=== PATIENT | female | born 1985 | race Hispanic/Latino ===

== ENCOUNTER 2024-02-06 11:07 | Outpatient (CLI) | payer OTHER, SELFPAY ==
--- NOTE | ~2024-02-06 | US_ITS ---
Pelvic ultrasound. Clinical History: Excessive and frequent menstruation Technique: Realtime transabdominal and transvaginal scanning of the pelvis was performed. Color flow Doppler and Doppler spectral analysis were performed. Findings: The uterus is anteverted. The endometrial stripe has a thickness of 16 mm. No focal mass i s identified. The right ovary measures 3.4 x 2.1 x 2.9 cm. No significant right ovarian or adnexal mass is seen. The left ovary measures 3.4 x 2.5 x 3.6 cm. Simple left ovarian cyst measures 2.6 cm. There is no evidence of free fluid in the cul de sac. Impression: 2.6 cm simple left ovarian cyst, otherwise unremarkable exam. Reviewed, dictated and finalized at location . Impression: 2.6 cm simple left ovarian cyst, otherwise unremarkable exam.
== END 2024-02-06 11:08 ==
PROVIDERS: PCP Physician Assistant; Visit Provider Physician Assistant
DX: N92.0 Excessive and frequent menstruation with regular cycle (principal); N83.202 Unspecified ovarian cyst, left side
CPT/HCPCS: 76830; 76856

== ENCOUNTER 2024-06-14 22:16 | Emergency (ER) | payer OTHER, SELFPAY ==
--- NOTE | ~2024-06-14 | XR_ITS ---
EXAMINATION: XR chest 1V portable DATE: 06/14/2024 23:00 INDICATION: Chest pain. Hematemesis. TECHNIQUE: A single frontal view of the chest was obtained. COMPARISON: None. FINDINGS: There are airspace opacities in the lower lung zones. A calcified right lung nodule and pawan cified right hilar lymph nodes are consistent with old granulomatous disease. No pleural effusion or pneumothorax. The heart size is normal. The nasogastric tube tip is beyond the inferior margin of the radiograph, but at least to the stomach. IMPRESSION: 1. Airspace opacities in the lower lung zones, consistent with atelectasis or less likely pneumonia. Reviewed, dictated and finalized at location A. IMPRESSION: 1. Airspace opacities in the lower lung zones, consistent with atelectasis or l ess likely pneumonia.
--- NOTE | ~2024-06-14 | XR_ITS ---
EXAMINATION: XR abdomen gastric tube insert DATE: 06/14/2024 23:00 INDICATION: Nasogastric tube placement. TECHNIQUE: An upright view of the abdomen was obtained. COMPARISON: None. FINDINGS: There are no dilated loops of bowel. The lower abdomen is excluded. The nasogastric tube ti p is in the stomach. IMPRESSION: 1. Nasogastric tube tip in the stomach. Reviewed, dictated and finalized at location A.
[2024-06-14 22:18] VITALS: BP 148/89; PULSE 94; RESP 18; TEMP 36.7; O2SAT 98
--- NOTE | 2024-06-14 22:35 | ECG_ITS ---
Test Date: 2024-06-14 23:16:20 Measurements Intervals [place] Rate: 88 P: 20 MI: 154 QRS: -4 QRSD: 101 T: 3 QT: 360 QTc: 436 Interpretive Statements SINUS RHYTHM WITH SINUS ARRHYTHMIA MODERATE VOLTAGE CRITERIA FOR LVH, CONSIDER NORMAL VARIANT [MEETS CRITERIA IN ONE OF: R(aVL), S(V1), R(V5), R(V5/V6)+S(V1)] No previous ECG available for comparison Electronically Signed On 06-15-2024 13:37:56 CDT by Milyl Hernandez M.D.
[2024-06-14 22:51] LABS: BEDSIDEPREGUCG Negative (Negative)
--- NOTE | 2024-06-14 22:55 | ED.GENADULT ---
HPI - General Adult General Chief complaint: Nausea/Vomiting/Diarrhea Stated complaint: vomiting blood Time Seen by Provider: 06/14/24 22:27 History of Present Illness HPI narrative: Patient is a 38-year-old female who presents ER with multiple complaints. First complaint is vomiting blood 25 minutes prior to arrival. She had 1 dry heave followed by 1 episode of emesis that had clear mucus mixed with a approximately 2 spoonfuls of blood. She is not on blood thinners. No dark black stool or melena. No syncope. She reports she has had central chest discomfort for the last 2 days. No exertional component. She is on her menstrual cycle is taking TXA. No pain with deep breath. No hemoptysis. No fevers or chills or sweats. Related Data Allergies Allergy/AdvReac Type Severity Reaction Status Date / Time Penicillins Allergy Mild Hives / Verified 06/14/24 22:23 [place] Review of Systems Review of Systems: All systems reviewed & are unremarkable except as noted in HPI and below Constitutional: Constitutional: Reports no additional constitutional complaints ENT: Reports system reviewed and no additional complaints, except as documented Cardiovascular: Cardiovascular: Reports no additional cardiovascular complaints Respiratory: Respiratory: Reports no additional respiratory complaints Gastrointestinal: Gastrointestinal: Reports no additional gastrointestinal complaints Musculoskeletal: Musculoskeletal: Reports no additional musculoskeletal complaints [facility] Past Medical History Medical History (Updated 06/15/24 @ 00:13 by Crispin Lea MD) Healthy female adult Surgical History Surgical History (Updated 06/14/24 @ 22:57 by Crispin Lea MD) History of tubal ligation Exam Narrative: GENERAL: Well-appearing, morbidly obese, and in no acute distress. HEAD: Normocephalic, atraumatic. ENT: Mucous membranes moist. CHEST: Clear to auscultation. No respiratory distress. HEART: Regular rate and rhythm. Normal peripheral pulses. ABDOMEN: Soft, nontender, nondistended. EXTREMITIES: Normal range of motion. No edema. SKIN: Warm, dry, no rash. NEURO: Alert and oriented x3. PSYCH: Normal mood and affect. Course Course Emergency Course: NG tube inserted. Lavaged with 300 mL of saline. No blood. NG removed. D-dimer negative as is the troponin. Lab work otherwise unremarkable. Discharge home with antiemetics and reflux medication. Vital Signs Vital signs: Vital Signs Temperature 98.1 F 06/14/24 22:18 Pulse Rate 94 06/14/24 22:18 Respiratory Rate 18 06/14/24 22:18 Blood Pressure 148/89 H 06/14/24 22:18 Pulse Oximetry 98 06/14/24 22:18 Oxygen Delivery Room Air 06/14/24 22:18 Temperature 98.1 F 06/14/24 22:18 Pulse Rate 94 06/14/24 22:18 Respiratory Rate 18 06/14/24 22:18 Blood Pressure 148/89 H 06/14/24 22:18 Pulse Oximetry 98 06/14/24 22:18 Oxygen Delivery Room Air 06/14/24 22:18 Medical Decision Making Vital Signs Vital Signs: Vital Signs Temperature 98.1 F 06/14/24 22:18 Pulse Rate 94 06/14/24 22:18 Respiratory Rate 18 06/14/24 22:18 Blood Pressure 148/89 H 06/14/24 22:18 Pulse Oximetry 98 06/14/24 22:18 Oxygen Delivery Room Air 06/14/24 22:18 Temperature 98.1 F 06/14/24 22:18 Pulse Rate 94 06/14/24 22:18 Respiratory Rate 18 06/14/24 22:18 Blood Pressure 148/89 H 06/14/24 22:18 Pulse Oximetry 98 06/14/24 22:18 Oxygen Delivery Room Air 06/14/24 22:18 Lab Data 06/14/24 22:53 06/14/24 22:53 Labs: Lab Results 06/14/24 06/14/24 Range/Units 22:48 22:53 WBC 9.9 (4.5-10.0) K/mm3 RBC 4.09 L (4.2-5.4) M/mm3 Hgb 11.9 L (12.0-15.0) g/dL Hct 35.6 L (37.0-47.0) % MCV 87.0 (80-100) fl MCH 29.1 (26-34) pg MCHC 33.4 (32-36) g/dl RDW 13.7 (11.5-14.5) % Plt Count 271 (150-375) k/mm3 MPV 10.2 (7.4-10.4) fl Immature G
[2024-06-14 22:59] LABS: Basophils Percent Auto 0.3 % (0.2-1.2); Eosinophils Absolute Auto 0.2 K/mm3 (0-0.3); Eosinophils Percent Auto 1.9 % (0-4.4); Hematocrit 35.6 % (37.0-47.0); Hemoglobin 11.9 g/dL (12.0-15.0); Immature Granulocyte Absolute 0.05 K/mm3 (0.00-0.031); Immature Granulocyte Percent A 0.5 % (0-0.5); Lymphocytes Absolute Auto 3.04 K/mm3 (0.9-3.2); Lymphocytes Percent Auto 30.6 % (18.3-44.2); Mean Corpuscular HGB Conc 33.4 g/dl (32-36); Mean Corpuscular Hemoglobin 29.1 pg (26-34); Mean Platelet Volume 10.2 fl (7.4-10.4); Monocytes Absolute Auto 0.5 K/mm3 (0.1-0.6); Monocytes Percent Auto 4.8 % (2.6-8.5); Neutrophils Absolute Auto 6.1 K/mm3 (1.3-6.7); Neutrophils Percent Auto 61.9 % (45.5-73.1); Platelet Count Result 271 k/mm3 (150-375); Red Blood Count 4.09 M/mm3 (4.2-5.4); Red Cell Distribution Width 13.7 % (11.5-14.5); White Blood Count 9.9 K/mm3 (4.5-10.0)
[2024-06-14 23:05] LABS: Add Urine Microscopic? YES; Appearance Urine Clear (Clear); Bacteria Urine None Seen /hpf; Bilirubin Urine Negative (Negative); Blood Urine 2+ (Negative); Color Urine Yellow (Yellow); Glucose Urine UA Negative (Negative); Ketones Urine Negative (Negative); Leukocyte Esterase Ur Negative LEU/UL (Negative); Nitrate Urine Negative (Negative); Non Pathogenic Casts 0-2; Protein Urine Negative (Negative); Specific Grav Ur 1.023 (1.001-1.035); Squamous Epithelial Cell Urine None Seen /hpf (Few); WBC Urine 0-5 /hpf (0-3)
[2024-06-14 23:10] LABS: Alanine Aminotransferase 33 U/L (6-35); Albumin Level 4.2 g/dL (3.5-5.1); Alkaline Phosphatase 138 U/L (38-126); Anion Gap 7 mmol/L (4-12); Aspartate Amino Transferase 32 U/L (14-36); Bilirubin,Total 0.3 mg/dL (0.2-1.3); Blood Urea Nitrogen 15 mg/dL (7-17); Carbon Dioxide 28 mmol/L (22-30); Chloride 103 mmol/L (98-107); Estimated CRCL calculation 107 ml/min; Estimated Glomerular Filt Rate > 60; Glucose 131 mg/dL (65-110); Lipase 110 U/L (23-300); Potassium 3.4 mmol/L (3.4-5.0); Sodium 138 mmol/L (137-145)
[2024-06-14] MEDS: ONDANSETRON INJ 4 MG/2 ML VIAL IV PUSH (23:10)
[2024-06-14] MEDS: SODIUM CHLORIDE 0.9% IV 1,000 ML 999 ML IV CONT (23:10)
[2024-06-14] MEDS: WATER FOR IRRIGATION, STERILE 500 ML BOTTLE (23:10)
[2024-06-14 23:13] LABS: D Dimer < 0.27 ug/mL (<0.48)
--- NOTE | 2024-06-14 23:14 | PC.NURSE ---
Patient had a lavage done through the NG tube. After putting 300mL of sterile water through the NG tube 200mL came back with just gastric contents and no blood. Notified EDP Dr. Lea who advised to remove the tube. Nursing staff removed the NG tube.
[2024-06-14 23:20] LABS: Troponin I < 0.012 ng/mL (0.000-0.034)
[2024-06-15 00:26] VITALS: BP 127/62; PULSE 86; RESP 16; TEMP 36.6; O2SAT 100
== END 2024-06-15 00:27 | disposition home or self-care (01) ==
PROVIDERS: Emergency Provider Emergency Medicine; PCP Physician Assistant
DX: K29.70 Gastritis, unspecified, without bleeding (principal)
CPT/HCPCS: 36415; 71045; 80053; 81001; 81025; 83690; 84484; 85025; 85380; 93005; 96361; 96374; 99284; J2405; J7030